=== PATIENT | male | born 1965 | race Caucasian/White ===

== ENCOUNTER → 2018-01-09 13:01 | Outpatient (CLI) | payer BC, SELFPAY | PROVIDERS: PCP Family Medicine; Visit Provider Emergency Medicine | DX: I48.0 Paroxysmal atrial fibrillation (principal) | CPT/HCPCS: 93005 ==

== ENCOUNTER → 2018-01-16 08:12 | Outpatient (CLI) | payer BC, SELFPAY ==
--- NOTE | 2018-01-16 08:19 | CA_ITS ---
PROCEDURE: 2-D M-mode and color Doppler study INDICATIONS FOR THE TEST: Chest pain COPD Heart Murmur Tobacco Smoking Palpitations+ Fatigue Syncope Edema Hypertension+Diabetes Mellitus Rheumatic Fever SOB RAMOS Obesity Hyperlipidemia+ Family History HD Additional History new onset AFIB PATIENT INFORMATION HEIGHT: 72 WEIGHT: 225 GENDER: Male B/P: 161/101 2-D/M-MODE INTERPRETATION: 2-D MEASUREMENTS OBSERVED VALUES IN CMS Right Ventricular Dimension (RVDd) 2.6 Interventricular Septum (Thickness)(IVsd) 1.0 Left Ventricular Internal Dimensions(LVIDd) 5.3 Left Ventricular Posterior Wall (Thickness)(LVPWd) 1.0 Aortic Root 3.3 Aortic Cusp Separation 2.1 Left Atrial Dimensions (LAD) 4.0 2D 1. Left atrium is mildly enlarged, left ventricle is normal size, mild concentric left ventricular hypertrophy, visually estimated ejection fraction 55% with no regional wall motion abnormality. 2. The right atrium and right ventricle are normal size and contractility. 3. The aortic, mitral and tricuspid valvular grossly normal. 4. The pulmonic valve is poorly visualized. 5. No significant pericardial effusion noted. DOPPLER INTERROGATION: Doppler interrogation of the aortic, mitral and tricuspid valvular presence of mild mitral and tricuspid regurgitation, tricuspid regurgitation jet velocity is inadequate for calculation of the right ventricular systolic pressure, grade 1 diastolic dysfunction seen with tissue Doppler evidence of raised left atrial pressure. CONCLUSION: 1. Mildly enlarged left atrium, normal left ventricular size, mild concentric left ventricular hypertrophy, visually estimated ejection fraction 55% with no regional wall motion abnormality, grade 1 diastolic dysfunction seen with tissue Doppler evidence of raised left atrial pressure. 2. Mild mitral and tricuspid regurgitation 3. No significant pericardial effusion noted.
== END ==
PROVIDERS: PCP Family Medicine; Visit Provider Emergency Medicine
DX: I48.0 Paroxysmal atrial fibrillation (principal)
CPT/HCPCS: 93306

== ENCOUNTER → 2018-05-15 11:08 | Outpatient (CLI) | payer BC, SELFPAY ==
--- NOTE | 2018-05-15 11:18 | MR_ITS ---
MR elbow LT wo con CLINICAL INDICATION: ITS.REASON: BICEPS TENDON RUPTURE left arm pain which is progressing ORDERING PHYSICIAN: Lula Shen MD PATIENT AGE: 52 years Comparison: None TECHNIQUE: Multiplanar multiecho sequences are performed without contrast. Report is delayed as the patient was asked to come back for additional imaging due to motion artifact and incomplete anatomic coverage. FINDINGS: There is increased T2 signal involving the distal aspect of the biceps tendon with some thickening of the tendon raising the suspicion of a partial tear versus tendinosis.. A complete tear with retracted distal biceps tendon is not present.. If the patient has a knot along the age aspect of the arm then, a proximal long head biceps tendon tear is a consideration and shoulder MRI may be of further value. There is moderate generalized motion artifact which does obscure fine detail of the ligaments of the elbow. The triceps tendon is intact. The brachial radialis tendon has an unremarkable appearance. No fracture or dislocation is evident. IMPRESSION: There is some thickening with increased T2 signal of the biceps tendon at the insertion on the radius suggesting tendinosis/tendinopathy versus a partial tear. A complete tear with tendon retraction is not apparent. If there are physical findings suggesting a biceps tendon tear then one may wish to look in the shoulder at the long head of the biceps tendon.
== END ==
PROVIDERS: PCP Emergency Medicine; Visit Provider Emergency Medicine
DX: S46.212A Strain of muscle, fascia and tendon of other parts of biceps, left arm, initial encounter (principal)
CPT/HCPCS: 73221

== ENCOUNTER → 2018-05-23 10:25 | Outpatient (CLI) | payer BC, SELFPAY | PROVIDERS: PCP Emergency Medicine; Visit Provider Emergency Medicine | DX: M25.522 Pain in left elbow (principal) ==

== ENCOUNTER 2023-11-28 15:34 | Outpatient (CLI) | payer BC, SELFPAY ==
--- NOTE | 2023-11-28 15:40 | MR_ITS ---
FINAL REPORT CLINICAL HISTORY: LOWER BACK PAIN , RADICULOPATHY PRIOR SURGERY TO REMOVE CYST FROM SPINAL COLUMN COMPARISON: None FINDINGS: Multiplanar MR imaging of the lumbar spine was performed without contrast. On the sagittal T2-weighted images, there is abnormal decreased signal in the L4-5 and L5-S1 discs. The vertebral alignment is normal. L1-2: There is no significant canal stenosis or neural foraminal narrowing. L2-3: There is no significant canal stenosis or neural foraminal narrowing. L3-4: There is no significant canal stenosis or neural foraminal narrowing. L4-5: A moderate diffuse bulge is present, with bilateral facet hypertrophy and slight irregularity of the anterior aspect of the L4-5 facet that may represent postoperative change. There is mild canal stenosis and mild bilateral neural foraminal narrowing. L5-S1: A mild to moderate diffuse bulge is present with mild to moderate bilateral neural foraminal narrowing. IMPRESSION: Mild to moderate degenerative change at the L4-5 and L5-S1 levels as described. Reviewed, Interpreted and Dictated by Huan Hoover MD Transcribed by Taniya Rios Authenticated and [facility]
== END 2023-11-28 23:59 | disposition home or self-care (01) ==
LOC: RAD 15:34
PROVIDERS: PCP Family Medicine; Visit Provider Family Medicine
DX: M54.16 Radiculopathy, lumbar region (principal)
CPT/HCPCS: 72148